=== PATIENT | female | born 1970 | race Caucasian/White ===

== ENCOUNTER 2016-05-21 16:18 | Outpatient (CLI) | payer BC ==
[~2016-05-21] VITALS: Ht 172.7 cm; Wt 77.3 kg
[2016-05-21 16:31] VITALS: Ht 172.7 cm; Wt 77.3 kg
[2016-05-21 16:32] VITALS: BP 120/72; PULSE 55; RESP 16
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
== END 2016-05-21 16:48 | disposition home or self-care (01) ==
LOC: HPC 16:18
PROVIDERS: ATTEND Transplant Surgery
DX: K81.9 Cholecystitis, unspecified (principal); K42.9 Umbilical hernia without obstruction or gangrene; K85.10 Biliary acute pancreatitis without necrosis or infection; M48.00 Spinal stenosis, site unspecified
CPT/HCPCS: G0463